=== PATIENT | female | born 1960 | race Caucasian/White ===

== ENCOUNTER 2019-03-09 00:21 | Emergency (ER) | payer OTHER ==
[2019-03-09 00:36] VITALS: BP 125/90; PULSE 93; RESP 20; TEMP 97.7
--- NOTE | 2019-03-09 02:57 | ED ---
ENT HPI - General Source: patient Mode of arrival: ambulatory Limitations: no limitations <Anusha Melchor - Last Filed: 03/09/19 04:26> <Sisi Rockwell - Last Filed: 03/10/19 06:22> - General Chief complaint: ENT Stated complaint: Ear Pain Time Seen by Provider: 03/09/19 02:48 - History of Present Illness Initial comments: 58-year-old female with no significant past medical history presents immersed her fibrillation left ear pain 2 days. Patient states she has had left ear pain and drainage for the past 2 days she states the external ear is itching. Patient states there is pain when she touches the ear. Patient denies any posterior ear pain. Patient denies any fever or flulike symptoms. She denies any lesions on the face scalp or external ear. Patient denies any headache or neck stiffness. Remaining review system negative. Upon arrival patient appears well signs of acute distress afebrile. (Anusha Melchor) - Related Data Home Medications Medication Instructions Recorded Confirmed Carvedilol [Coreg] 3.125 mg PO BID 06/07/14 06/08/14 Lisinopril [Zestril] 5 mg PO DAILY 06/07/14 06/08/14 Previous Rx's Medication Instructions Recorded Spironolactone [Aldactone] 25 mg PO DAILY #90 tab 06/09/14 Ofloxacin 0.3% Otic Soln [Floxin 10 drops LEFT EAR BID 7 Days #1 03/09/19 0.3% Otic Soln] bottle Allergies Allergy/AdvReac Type Severity Reaction Status Date / Time No Known Allergies Allergy Verified 03/09/19 00:36 Review of Systems ROS Other: All systems not noted in ROS Statement are negative. <Anusha Melchor - Last Filed: 03/09/19 04:26> ROS Other: All systems not noted in ROS Statement are negative. <Sisi Rockwell - Last Filed: 03/10/19 06:22> ROS Statement: Those systems with pertinent positive or pertinent negative responses have been documented in the HPI. Past Medical History Past Medical History: No Reported History History of Any Multi-Drug Resistant Organisms: None Reported Past Surgical History: No Surgical Hx Reported Past Psychological History: No Psychological Hx Reported Smoking Status: Former smoker Past Alcohol Use History: Occasional Past Drug Use History: None Reported <Anusha Melchor - Last Filed: 03/09/19 04:26> General Exam Limitations: no limitations <Anusha Melchor - Last Filed: 03/09/19 04:26> - General Exam Comments Initial Comments: General: The patient is awake and alert, in no distress, and does not appear acutely ill. Eye: +3 mm pupils are equal, round and reactive to light, extra-ocular movements are intact. No nystagmus. There is normal conjunctiva bilaterally. No signs of icterus. Ears, nose, mouth and throat: There are moist mucous membranes and no oral lesions. Tympanic membrane within normal limits no erythema. There is external auditory canal swelling no vesicular lesions drainage noted.Pain to pulling of the auricle. Neck: The neck is supple, there is no tenderness or JVD. No nuchal rigidity. No external lesions of the scalp face or ear. Cardiovascular: There is a regular rate and rhythm. No murmur, rub or gallop is appreciated. Neurological: A&O x 3. CN II-XII intact grossly, There are no obvious motor or sensory deficits. Coordination appears grossly intact. Speech is normal. Skin: Skin is warm and dry and no rashes or lesions are noted. Psychiatric: Cooperative, appropriate mood & affect, normal judgment. (Anusha Melchor) Course Vital Signs 03/09/19 00:32 Temperature 97.7 F Pulse Rate 93 Respiratory 20 Rate Blood Pressure 125/90 O2 Sat by Pulse 98 Oximetry Medical Decision Making <Anusha Melchor - Last Filed: 03/09/19 04:26> <Sisi Rockwell - Last Filed: 03/10/19 06:22> - Medical Decision Making PE consistent with Otitis externa. No vesicular lesions. Patient is no nuchal irritation signs. Appears well nontoxic. Patient was evaluated by attending provider who agrees with impression. Patient be started on ofloxacin given primary care follow-up. Return parameters were discussed and patient was discharged appearing well (Anusha Melchor) Personally saw and evaluated the patient. Left ear was signs of otitis externa will be treated with drops. (Sisi Rockwell) Disposition Is patient prescribed a controlled substance at d/c from ED?: No Time of Disposition: 03:44 <Anusha Melchor - Last Filed: 03/09/19 04:26> <Sisi Rockwell P - Last Filed: 03/10/19 06:22> Clinical Impression: Otitis externa Disposition: HOME SELF-CARE Condition: Good Instructions (If sedation given, give patient instructions): Otitis Externa (ED) Additional Instructions: Please use medication as discussed. Please follow-up with family doctor in the next 2 days. Please return to emergency room if the symptoms increase or worsen or for any other concerns. Prescriptions: Ofloxacin 0.3% Otic Soln [Floxin 0.3% Otic Soln] 10 drops LEFT EAR BID 7 Days #1 bottle Referrals: Diana Newman MD [Primary Care Provider] - 1-2 days
[2019-03-09] MEDS ORDERED: KETOROLAC 60 MG/2 ML VIAL IM STA (03:43)
== END 2019-03-09 04:06 | disposition home or self-care (01) ==
LOC: EC 00:21
DX: H60.92 Unspecified otitis externa, left ear (principal); Z79.02 Long term (current) use of antithrombotics/antiplatelets; Z79.899 Other long term (current) drug therapy; Z87.891 Personal history of nicotine dependence
CPT/HCPCS: 99282; 96372; J1885